=== PATIENT | male | born 1955 | race Caucasian/White ===

== ENCOUNTER 2019-05-29 07:41 | Outpatient (CLI) | payer BC ==
--- NOTE | 2019-05-29 09:27 | MRI ---
LUMBAR SPINE MRI WITHOUT CONTRAST: DATE: 05/29/2019. COMPARISON: None. HISTORY: Acute left-sided back pain with left-sided lower extremity radiculopathy. TECHNIQUE: Multiplanar, multisequence MR imaging of the lumbar spine is obtained without contrast. FINDINGS: Sagittal STIR imaging demonstrates no focal area of osseous marrow edema. There is a degree of degenerative levoscoliosis of the lumbar spine, which could be best assessed wit h radiographs. On the basis of 5 lumbar-type vertebral bodies, the conus medullaris terminates at T12-L1. T12-L1: There is disk space narrowing with disk desiccation and mild disk bulge as well as mild bila teral facet hypertrophy with no significant central canal or neural foraminal stenosis. L1-2: Disk desiccation and mild disk bulge with minimal disk protrusion in left foraminal region. N o central canal or neural foraminal stenosis. L2-3: There is disk space narrowing with disk desiccation and mild disk bulge. There is a small rig ht paracentral disk herniation with mild superior migration. Bilateral facet hypertrophy, right grea ter than left. Mild central canal stenosis/right lateral recess stenosis. Mild right neural foramin al stenosis. No significant left neural foraminal stenosis. L3-4: Minimal anterolisthesis noted measuring approximately 3 mm. There is disk space narrowing wit h disk desiccation and disk-osteophyte complex. The patient appears status post left-sided hemilamin ectomy. There is moderate central canal stenosis/right lateral recess stenosis. There is moderate/s evere bilateral neural foraminal stenosis, right greater than left. L4-5: There is disk space narrowing, disk desiccation, and disk-osteophyte complex with mild central canal stenosis. Bilateral facet hypertrophy noted, left greater than right. There is mild/moderate right neural foraminal stenosis and severe left neural foraminal stenosis. L5-S1: Disk space narrowing, disk desiccation, and disk bulge. There is a disk herniation in the ce ntral/right paracentral region with approximately 6 mm of inferior migration causing a mild degree of right lateral recess stenosis. Bilateral facet hypertrophy is present. Vacuum disk formation noted . There is moderate/severe bilateral neural foraminal stenosis, left greater than right. Imaged retroperitoneal structures demonstrate no acute findings. IMPRESSION: Prominent multilevel degenerative change with significant multilevel central canal and neural foramin al stenosis as described above. POS: [facility]
== END 2019-05-29 07:42 | disposition home or self-care (01) ==
LOC: BICMRI 07:41
PROVIDERS: ATTEND Internal Medicine
DX: M54.42 Lumbago with sciatica, left side (principal); M47.816 Spondylosis without myelopathy or radiculopathy, lumbar region; M48.061 Spinal stenosis, lumbar region without neurogenic claudication; M48.07 Spinal stenosis, lumbosacral region
CPT/HCPCS: 72148

== ENCOUNTER 2019-06-12 07:24 | Outpatient (CLI) | payer BC ==
[2019-06-12 10:40] LABS: #Basophils 0.1 thou/uL (0.0-0.2); #Eosinphils 0.1 thou/uL (0.0-0.7); #Lymphocytes 3.4 thou/uL (1.20-3.40); #Monocytes 0.7 thou/uL (0.11-0.59); #Neutrophils 4.6 thou/uL (1.40-6.50); %Basophils 0.6 % (0.0-1.0); %Eosinophils 0.9 % (0.0-10.0); %Lymphocytes 38.1 % (21.0-51.0); %Monocytes 8.2 % (0.0-10.0); %Neutrophils 52.1 % (42.0-75.0); Hemoglobin 14.2 g/dL (14.0-18.0); Mean Corpuscular HGB CONC 33.6 g/dL (32.0-36.0); Mean Corpuscular Hemoglobin 30.7 pg (27.0-31.0); Mean Corpuscular Volume 91.3 fL (78.0-98.0); Mean Platelet Volume 7.8 fL (7.4-10.4); Platelet Count 238 thou/uL (130-400); RBC Distribution Width 13.7 % (11.5-14.5); Red Blood Cell (RBC) Count 4.62 mill/uL (4.70-6.10); White Blood Cell (WBC) Count 8.9 thou/uL (4.8-10.8)
== END 2019-06-12 07:25 | disposition home or self-care (01) ==
LOC: LABBT 07:24
PROVIDERS: ATTEND Orthopaedic Surgery
DX: Z01.812 Encounter for preprocedural laboratory examination (principal); G56.02 Carpal tunnel syndrome, left upper limb
CPT/HCPCS: 85025

== ENCOUNTER 2019-06-14 07:01 | Day surgery (SDC) | payer BC ==
[2019-06-14] MEDS ORDERED: Midazolam HCl 2 mg/2 ml Vial ONE (08:14)
[2019-06-14] MEDS ORDERED: Fentanyl 100 MCG/2 ML VIAL ONE (08:14)
[2019-06-14] MEDS ORDERED: Lidocaine 1% (PF) 30 ML VIAL ONE (08:56)
[2019-06-14] MEDS ORDERED: Ondansetron PF 4 MG/2 ML Vial ONE (11:13)
[2019-06-14] MEDS ORDERED: Ketorolac Tromethamine 30 MG/ML VIAL ONE (11:13)
[2019-06-14] MEDS ORDERED: PROPOFOL 200 MG/20 ML VIAL ONE (11:13)
--- NOTE | 2019-06-14 13:35 | OP ---
DATE OF PROCEDURE: 06/14/2019 PREOPERATIVE DIAGNOSIS: Left carpal tunnel syndrome. POSTOPERATIVE DIAGNOSIS: Left carpal tunnel syndrome. PROCEDURES PERFORMED: 1. Left open carpal tunnel release. 2. Placement of short-arm volar splint, left upper extremity. ELECTRIC WELDER HELPER: None. ESTIMATED BLOOD LOSS: Minimal. COMPLICATIONS: None. ANESTHESIA: The patient did have a TIVA with local. DISPOSITION: Went to Day Stay in stable condition. INDICATIONS: This is a 64-year-old male, who comes in complaining of numbness, tingling, and pain in his left upper extremity. He was found on EMG/NCV to have significant carpal tunnel syndrome and at this time, wished to have surgery. DESCRIPTION OF PROCEDURE: After all appropriate consent forms were explained and signed, the patient was taken back to the operating room and at this time was given IV sedation. A well-padded tourniquet was placed on the left arm and the arm was then prepped and draped in the standard surgical fashion. The incision was then drawn out and infiltrated with plain lidocaine. Limb was exsanguinated and tourniquet taken up to 250 mmHg. At this time, using Loupe magnification, a 15 blade was used to incise down through skin. Bipolar cautery was used to coagulate any brisk venous bleeding. We then placed a small hemostat to protect the underlying median nerve and transected the transverse carpal ligament using multiple 15 blades as well as scissors. Once this was done, a small finger was inserted to palpate for any remaining bands. At this time, a moist Ray-Lenny sponge was placed into the wound. Tourniquet was let down and pressure was held. Bipolar cautery used to coagulate any brisk venous bleeding. The wound was then irrigated with saline solution and we then evaluated the nerve. The nerve was found to be significantly injected, the nerve was intact, there were no masses noted, and the underlying flexor tendons were in good condition. At this time, we irrigated and dried the wound. We then placed multiple nylon stitches to close the incision. A bulky sterile hand dressing and a small volar splint were then placed. The patient was then awakened and taken to recovery in stable condition. All counts were correct at the end of the case. The patient received preoperative IV antibiotics. Job ID: [id number]
== END 2019-06-14 11:07 | disposition home or self-care (01) ==
LOC: SDC 07:01
PROVIDERS: ATTEND Orthopaedic Surgery
PROC: 01N50ZZ Release Median Nerve, Open Approach (ICD-10-PCS; principal; 2019-06-14)
DX: G56.02 Carpal tunnel syndrome, left upper limb (principal); I10 Essential (primary) hypertension; J44.9 Chronic obstructive pulmonary disease, unspecified; K21.9 Gastro-esophageal reflux disease without esophagitis; E78.00 Pure hypercholesterolemia, unspecified; M19.019 Primary osteoarthritis, unspecified shoulder; E78.5 Hyperlipidemia, unspecified; Z79.82 Long term (current) use of aspirin; Z79.899 Other long term (current) drug therapy; Z87.891 Personal history of nicotine dependence; Z88.1 Allergy status to other antibiotic agents
CPT/HCPCS: J0690; J1885; J2001; J2250; J2405; J2704; J3010

== ENCOUNTER 2019-06-20 08:16 | Outpatient (CLI) | payer BC ==
--- NOTE | 2019-06-20 09:00 | CT ---
EXAM: CT Pulmonary Lung Scan PROVIDED CLINICAL HISTORY: Tobacco abuse. Patient smoked for over 10 years. Patient recently quit 2 years ago. Encounter for scr eening for lung cancer. COMPARISON: 12/01/2014. FINDINGS: Again noted are peripherally located mild chronic linear interstitial lung changes greater at the sandeep g apices and on the right. Minimal emphysematous changes in the anterior aspect of each upper lobe. Calcified pleural-based thickening is again seen at the posteromedial aspect left lung base. There is a stable linear and slight nodular 6 mm density seen at the posterolateral aspect of the rig ht lower lobe in a subpleural location which is stable in appearance and size compared to study in 2015. Adjacent linear calcification is present. Calcified granuloma is again seen at the posteromedia l left lung base. No new noncalcified pulmonary nodule or mass is seen, and there is no pleural effusion identified. Calcified left hilar lymph nodes are seen. Lack of intravenous contrast limits evaluation of mediasti nal structures, but no definite enlarged mediastinal lymph nodes are seen. Vascular calcifications are seen in the thoracic aorta. Left glenohumeral prosthesis is present. Post surgical changes cervical spine are seen. Images through the upper abdomen demonstrate calcified granulomata in the spleen. Diminished attenuat ion of visualized liver is seen suggesting fatty infiltration. This was also present on prior exam. IMPRESSION: 1. Lung RADS category 2, benign appearance. Continue annual screening with the low-dose CT scan in 12 months. 2. Stable mild chronic lung changes since study in 2014. 3. Calcified pleural based thickening left lung base, also seen on prior study. This can be seen with prior asbestos exposure or prior hematoma or infectious process. 4. Vascular calcifications. 5. Fatty infiltration of the liver.
== END 2019-06-20 08:17 | disposition home or self-care (01) ==
LOC: CT 08:16
PROVIDERS: ATTEND Internal Medicine
DX: Z12.2 Encounter for screening for malignant neoplasm of respiratory organs (principal); R91.8 Other nonspecific abnormal finding of lung field; K76.0 Fatty (change of) liver, not elsewhere classified; I70.90 Unspecified atherosclerosis
CPT/HCPCS: G0297

== ENCOUNTER 2019-10-07 08:12 | Outpatient (CLI) | payer BC, MEDICARE, OTHER ==
[2019-10-07 20:22] LABS: SARS-CoV-2 MS2 Positive; SARS-CoV-2 N Gene Negative; SARS-CoV-2 S Gene Negative; SARS-CoV-2 orf1ab Negative
== END 2019-10-07 08:13 | disposition home or self-care (01) ==
LOC: LABBT 08:12
PROVIDERS: ATTEND Neurological Surgery
DX: Z01.812 Encounter for preprocedural laboratory examination (principal); Z11.59 Encounter for screening for other viral diseases; M54.16 Radiculopathy, lumbar region
CPT/HCPCS: 87635; U0003

== ENCOUNTER 2019-10-09 05:44 | Day surgery (SDC) | payer BC, MEDICARE, OTHER ==
[2019-10-03 10:52] VITALS: BMI 28.1
--- NOTE | 2019-10-08 12:29 | HP ---
HISTORY OF PRESENT ILLNESS: Mr. Jaquez is a pleasant 64-year-old man, referred to us for evaluation of lower back pain with associated severe left lower extremity pains that would best fits the description of L5 pattern. This onset back in 2019 at the end of the year with no recollection of specific inciting event. He has had two epidural steroid injections with Dr. Chamberlain. Since then, relief was marginal at best. He is concerned now that the pain is continually worsening and he is greatly affected by this. Pain is worse when up and about, improved slightly with rest. MRI from [facility] reveals severe lateral recess stenosis on the left at L4-L5 as well as moderate foraminal stenosis at L5 on the left that would Examination is deferred for telehealth visit. PAST MEDICAL HISTORY: Significant for hypercholesterolemia, osteoarthritis, hypertension. CURRENT MEDICATIONS: 1. Omeprazole. 2. Amlodipine. 3. Atorvastatin. 4. Gabapentin. ALLERGIES: TO LEVAQUIN. PAST SURGICAL HISTORY: Knee replacement, shoulder replacement, unspecified back surgery, unspecified neck surgery. ASSESSMENT: Lumbar radiculopathy. PLAN: Dr. Frederick met with the patient, reviewed imaging and advocated for left L4-L5 decompression with left-sided L5 foraminotomy. He explained to the patient risks, benefits, and alternatives to the procedure. The patient expressed understanding and elected to move forward with surgery as discussed. I do believe the patient is mentally competent and capable of making medical decisions for himself. We will move forward with surgery as planned. Job ID: [id number]
[2019-10-09] MEDS ORDERED: Bupivacaine PF 0.5% 30 ML VIAL ONE (06:11)
[2019-10-09] MEDS ORDERED: EPINEPHrine 1 MG/ML AMP ONE (06:11)
[2019-10-09] MEDS ORDERED: Thrombin 5000 UNITS/5 ML VIAL ONE (06:11)
[2019-10-09] MEDS ORDERED: Fentanyl 100 MCG/2 ML VIAL ONE ×2 (06:32→06:39)
[2019-10-09] MEDS ORDERED: SUGAMMADEX SODIUM 200 MG/2 ML VIAL ONE (06:39)
[2019-10-09] MEDS ORDERED: Acetaminophen 500 MG TAB ONE (06:44)
[2019-10-09] MEDS ORDERED: Tamsulosin HCl 0.4 MG CAP ONE (08:56)
--- NOTE | 2019-10-09 09:34 | OP ---
DATE OF PROCEDURE: 10/09/2019 VEGETABLE PICKER: Deepak English PA-C. INDICATION: Pain. DIAGNOSIS: Lumbar radiculopathy. PROCEDURES PERFORMED: 1. Left L5 medial facetectomy and foraminotomy. 2. Left L4-L5 lateral recess decompression. ANESTHESIA: General. DESCRIPTION OF PROCEDURE: The patient was brought into the operating room and placed under general anesthesia. He was flipped from the supine to prone position on the operating room table. A linear incision was planned over the L5 segment. After prepping and draping and after an appropriate preoperative pause, the incision was created. The soft tissues were swept left of midline. A self-retaining retractor was placed for optimal exposure. After confirming the appropriate level with C-arm fluoroscopy, high-speed cutting drill bit as well as 2, 3, and 4 mm Kerrisons used to perform a complete hemilaminectomy of L5, which included medial half of the facet joint. The decompression extended cephalad to include the L4-L5 interface lateral recess. A generous foraminotomy was performed over the exiting L5 nerve root. After completing the decompression, the wound was irrigated. Hemostasis was maintained throughout. The wound was then closed in anatomic layers and a pressure dressing was applied. There were no known procedural complications. Job ID: [id number]
[2019-10-09] MEDS ORDERED: Lidocaine 1% PF 5 ML VIAL ONE (11:21)
[2019-10-09] MEDS ORDERED: Dexamethasone 20 MG/5 ML VIAL ONE (11:21)
[2019-10-09] MEDS ORDERED: PROPOFOL 200 MG/20 ML VIAL ONE (11:21)
[2019-10-09] MEDS ORDERED: Ondansetron PF 4 MG/2 ML Vial ONE (11:21)
[2019-10-09] MEDS ORDERED: EPHEDRINE 25 MG/5 ML SYRINGE ONE (11:21)
[2019-10-09] MEDS ORDERED: Rocuronium Bromide 10 MG/ML (10ML VIAL) ONE (11:21)
[2019-10-09] MEDS ORDERED: Ketorolac Tromethamine 30 MG/ML VIAL ONE (11:21)
== END 2019-10-09 11:17 | disposition home or self-care (01) ==
LOC: SDC 05:44
PROVIDERS: ATTEND Neurological Surgery
PROC: 00NY0ZZ Release Lumbar Spinal Cord, Open Approach (ICD-10-PCS; principal; 2019-10-09)
DX: M48.061 Spinal stenosis, lumbar region without neurogenic claudication (principal); M54.16 Radiculopathy, lumbar region; I10 Essential (primary) hypertension; E78.00 Pure hypercholesterolemia, unspecified; M19.90 Unspecified osteoarthritis, unspecified site; Z79.82 Long term (current) use of aspirin; Z79.899 Other long term (current) drug therapy; Z88.1 Allergy status to other antibiotic agents
CPT/HCPCS: 76000; J0171; J0690; J1100; J1885; J2001; J2405; J2704; J3010; S0020

== ENCOUNTER 2019-11-19 13:56 | Outpatient (CLI) | payer BC, MEDICARE, OTHER ==
--- NOTE | 2019-11-19 16:04 | MRI ---
MRI LUMBAR SPINE WITH AND WITHOUT CONTRAST: DATE: 11/19/2019 HISTORY: 64-year-old male with lumbar radiculopathy and low back pain COMPARISON: 05/29/2019 TECHNIQUE: Multiple sequences obtained in axial and sagittal planes, pre and post IV injection of gadolinium-bas ed contrast agent. FINDINGS: 5 lumbar-type vertebrae. No vertebral body collapse. Conus medullaris terminates at upper L1. T11-12: Central and bilateral paracentral broad-based disc-osteophyte complex indents thecal sac but does not contact the spinal cord. Mild central spinal canal stenosis. No neural foraminal stenosis. No high-grade disc space narrowing. No interval change. T12-L1:No high-grade disc space narrowing. Retrolisthesis of T12 on L1. Central and bilateral paracen tral broad-based disc protrusion indents ventral aspect of thecal sac, but does not contact conus. Mild central stenosis. No high-grade neural foraminal stenosis. No interval change. L1-2:Disc space maintained. Mild disc bulge, asymmetrically larger at the left lateral and far latera l areas. No central stenosis or high-grade neural foraminal stenosis. No major interval change. L2-3:Moderate ligamentum flavum thickening. Moderate right and mild left facet DJD. No high-grade dis c space narrowing. Prominent diffuse disc bulge moderate right neural foraminal stenosis. Mild left neural foraminal stenosis. Mild to moderate central spinal canal stenosis. Posterior epidural fat pad . Moderate thecal sac stenosis. Right subarticular zone stenosis. No major interval change. L3-4:Severe right-sided disc space narrowing with right-sided Modic type I changes. Prominent diffuse disc bulge. Moderate right facet DJD. Slight grade 1 anterolisthesis of L3 on L4. All of the above factors result in moderate central spinal canal stenosis, right subarticular zone stenosis, severe ri ght neural foraminal stenosis with chronic compression and the formation of exiting right L3 nerve root, and moderate left neural foraminal stenosis. Left hemilaminectomy defect. Postsurgical scar tis rosa at left subarticular zone (lateral recess) surrounding the left L IV nerve root. This severe right neural foraminal stenosis is also due to the concavity of the levoscoliosis at this level. No m ajor interval change. L4-5:Severe degenerative disc disease asymmetrically on the left side, with severe left disc space na rrowing, left Modic type I marrow edema, and severe left neural foraminal stenosis, due to the concavity of the right-lateral counter curvature at this level. Retrolisthesis of L4 on L5 with broad -based disc bulge-osteophytic bar complex indenting the ventral aspect of thecal sac. Ligamentum flavum thickening. Mild to moderate right facet DJD. Moderate to severe left facet DJD. Left apparent hemilaminotomy defect, new since prior MRI. At this defect, there is an approximately 1 x 2.5 x 2.1 cm fluid filled cavity surrounded by thick enhancing scar tissue or granulation tissue. Soft tiss ue edema and enhancement extends from this contiguously through the left posterior para spinal musculature enhancing granulation or scar tissue at left lateral recess (subarticular zone, around le ft L5 nerve root mild to moderate central spinal canal stenosis, slightly worse than before. Moderate right neural foraminal stenosis. L5-S1:Moderate disc space narrowing. Diffuse disc bulge. Moderate bilateral facet DJD. Moderate right and moderate to severe left chronic neural foraminal stenosis, unchanged. The above-described fluid-filled cavity extends from the region of the left L4-5 lamina to the region of the left L5-S1 l ginny, along with its thick rind of surrounding enhancing soft tissues and edema. Enhancing granulation or tissue or scar tissue at left lateral recess and left neural foramen, around left exit ing L5 and S1 nerve roots. IMPRESSION: 1) a Fluid-filled cavity surrounded by thick enhancing edematous tissues contiguously occupying the r egions of the left L5 and left S1 laminae. This may represent a postsurgical hematoma or abscess, if there has been recent left hemilaminectomies at L4-5 and L5-S1. Recommend correlation with history . 2) the enhancing soft tissues, either granulation tissue or scar tissue, from there, contiguously inv olve left lateral recesses and left neural foramina at L4-5 and L5-S1, surrounding left-sided nerve roots. 3) severe lumbar spondylosis with scoliosis, severe degenerative disc disease, and high-grade facet o steoarthrosis, at mid and lower levels. 4) high-grade neural foraminal stenosis as mentioned above.
== END 2019-11-19 13:57 | disposition home or self-care (01) ==
LOC: TBSIIMAG 13:56
PROVIDERS: ATTEND Neurological Surgery
DX: M51.16 Intervertebral disc disorders with radiculopathy, lumbar region (principal); M47.26 Other spondylosis with radiculopathy, lumbar region; M48.061 Spinal stenosis, lumbar region without neurogenic claudication; M48.04 Spinal stenosis, thoracic region; M48.05 Spinal stenosis, thoracolumbar region; M48.07 Spinal stenosis, lumbosacral region; M41.9 Scoliosis, unspecified; R60.0 Localized edema; M79.89 Other specified soft tissue disorders; Z98.890 Other specified postprocedural states
CPT/HCPCS: 72158; 82565

== ENCOUNTER 2019-12-20 07:23 | Outpatient (CLI) | payer MEDICARE, OTHER ==
[2019-12-20 17:03] LABS: SARS-CoV-2 MS2 Positive; SARS-CoV-2 N Gene Negative; SARS-CoV-2 S Gene Negative; SARS-CoV-2 by NAA Not Detected (NotDetected); SARS-CoV-2 orf1ab Negative
== END 2019-12-20 07:24 | disposition home or self-care (01) ==
LOC: LABBT 07:23
PROVIDERS: ATTEND Neurological Surgery
DX: M54.16 Radiculopathy, lumbar region (principal); Z20.828 Contact with and (suspected) exposure to other viral communicable diseases
CPT/HCPCS: 87635; U0003

== ENCOUNTER 2020-06-03 07:46 | Outpatient (CLI) | payer MEDICARE, OTHER | END 2020-06-03 07:47 | disposition home or self-care (01) | PROVIDERS: ATTEND Family Medicine | DX: M54.16 Radiculopathy, lumbar region (principal); Z98.890 Other specified postprocedural states ==

== ENCOUNTER 2020-07-24 10:23 | Outpatient (CLI) | payer MEDICARE, OTHER ==
[2020-07-24] MEDS ORDERED: Magnevist 469MG/ML 20 ML VIAL ONE (14:47)
== END 2020-07-24 10:24 | disposition home or self-care (01) ==
LOC: BICMRI 10:23
PROVIDERS: ATTEND Family Medicine
DX: M48.062 Spinal stenosis, lumbar region with neurogenic claudication (principal); M47.26 Other spondylosis with radiculopathy, lumbar region; M96.1 Postlaminectomy syndrome, not elsewhere classified; G89.4 Chronic pain syndrome; Z98.890 Other specified postprocedural states
CPT/HCPCS: 72158; 82565; A9579

== ENCOUNTER 2020-08-25 12:30 | Outpatient (CLI) | payer MEDICARE, OTHER | END 2020-08-25 12:31 | disposition home or self-care (01) | LOC: CT 12:30 | PROVIDERS: ATTEND Neurological Surgery | DX: M47.26 Other spondylosis with radiculopathy, lumbar region (principal); M47.817 Spondylosis without myelopathy or radiculopathy, lumbosacral region; M47.815 Spondylosis without myelopathy or radiculopathy, thoracolumbar region; Z98.890 Other specified postprocedural states | CPT/HCPCS: 72131 ==

== ENCOUNTER 2020-08-31 07:32 | Outpatient (CLI) | payer MEDICARE, OTHER | END 2020-08-31 07:33 | disposition home or self-care (01) | LOC: BICCT 07:32 | PROVIDERS: ATTEND Internal Medicine | DX: Z13.6 Encounter for screening for cardiovascular disorders (principal); Z12.2 Encounter for screening for malignant neoplasm of respiratory organs; Z87.891 Personal history of nicotine dependence; R91.8 Other nonspecific abnormal finding of lung field; I70.90 Unspecified atherosclerosis; K76.0 Fatty (change of) liver, not elsewhere classified | CPT/HCPCS: 71271; 76775 ==

== ENCOUNTER 2020-09-04 09:33 | Outpatient (CLI) | payer MEDICARE, OTHER ==
[2020-09-04 20:43] LABS: SARS-CoV-2 PCR by NAA Not Detected (NotDetected)
== END 2020-09-04 09:34 | disposition home or self-care (01) ==
LOC: LABBT 09:33
PROVIDERS: ATTEND Neurological Surgery
DX: Z01.818 Encounter for other preprocedural examination (principal); M48.061 Spinal stenosis, lumbar region without neurogenic claudication; Z20.822 Contact with and (suspected) exposure to COVID-19
CPT/HCPCS: 93005; U0003; U0005; 87635; 93010

== ENCOUNTER 2020-09-09 07:16 | Day surgery (SDC) | payer MEDICARE, OTHER ==
[2020-09-09] MEDS ORDERED: EPINEPHrine 1 MG/ML AMP ONE (08:19)
[2020-09-09] MEDS ORDERED: Bupivacaine PF 0.5% 30 ML VIAL ONE (08:19)
[2020-09-09] MEDS ORDERED: Fentanyl 100 MCG/2 ML VIAL ONE ×2 (09:02→11:54)
[2020-09-09] MEDS ORDERED: PHENYLEPHRINE-NS 100 MCG/ML 10 ML SYRINGE ONE (09:14)
[2020-09-09] MEDS ORDERED: Rocuronium Bromide 10 MG/ML (10ML VIAL) ONE (09:14)
[2020-09-09] MEDS ORDERED: Dexamethasone 20 MG/5 ML VIAL ONE (09:14)
[2020-09-09] MEDS ORDERED: Glycopyrrolate 0.2 MG/ML 5 ML SYRINGE ONE (09:14)
[2020-09-09] MEDS ORDERED: Lidocaine 1% PF 5 ML VIAL ONE (09:14)
[2020-09-09] MEDS ORDERED: ePHEDrine Sulfate 50 MG/10 ML VIAL ONE (09:14)
[2020-09-09] MEDS ORDERED: PROPOFOL 200 MG/20 ML VIAL ONE (09:14)
[2020-09-09] MEDS ORDERED: Ondansetron PF 4 MG/2 ML Vial ONE (09:14)
[2020-09-09] MEDS ORDERED: Tamsulosin HCl 0.4 MG CAP ONE (11:59)
[2020-09-09] MEDS ORDERED: HYDROcodone/Acetaminophen 5/325 mg Tablet ONE ×2 (13:19→14:42)
== END 2020-09-09 15:28 | disposition home or self-care (01) ==
LOC: SDC 07:16
PROVIDERS: ATTEND Neurological Surgery
PROC: 0SG00A0 Fusion of Lumbar Vertebral Joint with Interbody Fusion Device, Anterior Approach, Anterior Column, Open Approach (ICD-10-PCS; principal; 2020-09-09)
PROC: 0ST20ZZ Resection of Lumbar Vertebral Disc, Open Approach (ICD-10-PCS; 2020-09-09)
DX: M48.062 Spinal stenosis, lumbar region with neurogenic claudication (principal); M54.16 Radiculopathy, lumbar region; I10 Essential (primary) hypertension; E78.00 Pure hypercholesterolemia, unspecified; M19.90 Unspecified osteoarthritis, unspecified site; Z79.899 Other long term (current) drug therapy; Z88.0 Allergy status to penicillin
CPT/HCPCS: 20930; 20936; 22612; 22840; 76000; C1713 ×5; C1768; J0171; J0690; J1100; J2405; J2704; J3010; S0020

== ENCOUNTER 2021-08-31 11:32 | Outpatient (CLI) | payer MEDICARE, OTHER | END 2021-08-31 11:33 | disposition home or self-care (01) | LOC: BICCT 11:32 | PROVIDERS: ATTEND Internal Medicine | DX: Z12.2 Encounter for screening for malignant neoplasm of respiratory organs (principal); Z87.891 Personal history of nicotine dependence; J43.9 Emphysema, unspecified; J92.9 Pleural plaque without asbestos; R91.8 Other nonspecific abnormal finding of lung field; J98.4 Other disorders of lung | CPT/HCPCS: 71271 ==

== ENCOUNTER 2022-08-31 09:53 | Outpatient (CLI) | payer MEDICARE, OTHER | END 2022-08-31 09:54 | disposition home or self-care (01) | LOC: BICCT 09:53 | PROVIDERS: ATTEND Internal Medicine | DX: Z12.2 Encounter for screening for malignant neoplasm of respiratory organs (principal); Z87.891 Personal history of nicotine dependence | CPT/HCPCS: 71271 ==

== ENCOUNTER 2022-11-02 09:34 | Outpatient (CLI) | payer MEDICARE, OTHER | END 2022-11-02 09:35 | disposition home or self-care (01) | LOC: NM 09:34 | PROVIDERS: ATTEND Family Medicine Sports Medicine | DX: M25.561 Pain in right knee (principal) | CPT/HCPCS: 78315; A9503 ==

== ENCOUNTER 2023-06-05 08:49 | Outpatient (CLI) | payer MEDICARE, OTHER ==
[2023-06-05] MEDS ORDERED: Regadenoson 0.4 MG/5 ML SYRINGE ONE (11:00)
== END 2023-06-05 08:50 | disposition home or self-care (01) ==
LOC: NM 08:49
PROVIDERS: ATTEND Nurse Practitioner
DX: I73.9 Peripheral vascular disease, unspecified (principal)
CPT/HCPCS: 78452; 93017; A9502; J2785

== ENCOUNTER 2025-01-31 07:35 | Outpatient (CLI) | payer MEDICARE, OTHER | END 2025-01-31 07:36 | disposition home or self-care (01) | LOC: BICCT 07:35 | PROVIDERS: ATTEND Internal Medicine | DX: Z12.2 Encounter for screening for malignant neoplasm of respiratory organs (principal); Z87.891 Personal history of nicotine dependence | CPT/HCPCS: 71271 ==